=== PATIENT | female | born 1965 | race Caucasian/White ===

== ENCOUNTER 2019-02-08 19:26 | Emergency (ER) | payer OTHER ==
[2019-02-08] MEDS ORDERED: 0.9 % SODIUM CHLORIDE 1,000 ML IV ONE (19:31)
[2019-02-08] MEDS ORDERED: KETOROLAC TROMETHAMINE 30 MG/1ML VIAL IV ONE (19:31)
--- NOTE | 2019-02-08 19:38 | ED Physician Documentation ---
General Adult - HISTORIAN Historian: patient, spouse - HPI Chief Complaint: General Adult Additional Information: Patient is a 53-year-old female who presents to the ER with . Patient states they are traveling and they stayed at a friends house in . She started to get a headache around 16:00 and took some Ibuprofen and felt better- but then she developed chills and feeling dizzy. She is currently being treated for latent TB. She started antivirals on 01/25/19. She states that her xray was negative. When asked how she was exposed- she states that she works in [employer]. Onset: hours Timing: still present, worse since Severity: moderate Modifying Factors: Traveling, exposure to TB with treatment - ROS CONST: fever, recent illness (Exposure to TB), chills EYES/ENT: none CVS/RESP: shortness of breath, cough GI/: none NEURO/PSYCH: headache, dizziness - PAST HX Past History: other (fibromyalgia, hypothyroid, OCD) Surgeries/Procedures: other (uterine ablasion, heart ablasion for V-tach) Immunizations: UTD Allergies/Adverse Reactions: Allergies Allergy/AdvReac Type Severity Reaction Status Date / Time Sulfa (Sulfonamide Allergy Verified 02/08/19 19:34 Antibiotics) Home Medications: Ambulatory Orders Medication Instructions Recorded Citalopram Hydrobromide 20 mg PO DAILY 02/08/19 [Citalopram HBr] Isoniazid 900 mg PO WEEK 02/08/19 LORazepam [Ativan] 0.5 mg PO DAILY PRN 02/08/19 Levothyroxine Sodium 125 mcg PO DAILY 02/08/19 Pregabalin [Lyrica] 1 cap PO BID 02/08/19 Rifapentine [Priftin] 6 tab PO WEEK 02/08/19 Zolpidem Tartrate 5 mg PO HS 02/08/19 - SOCIAL HX Smoking History: non-smoker Alcohol Use: rarely Drug Use: none - FAMILY HX Family History: No - REVIEWED ASSESSMENTS Nursing Assessment Reviewed: Yes Vitals Reviewed: Yes Progress - Progress Progress: 20:15 spoke with patient about results of labs and xray- patient is hyperventilating- explained to slow her breathing down- we will get chest CT due to elevated D-dimer. Patient agrees with Plan of [facility]. 21:[address]- patient is resting comfortably- breathing much easier ED Results Lab/Radiology - Lab Results Lab Results: WBC 4.9, Hgb 13.9, Hct 40.2, Platelets 170 Na 137, K+ 3.8, Cl 103, CO2 21, Glucose 118, BUN 13, Cr 0.73, liver enzymes WNL D-dimer 1792 - Radiology Radiology Impressions: PA and lateral chest Clinical history: Shortness of breath. Fever. Findings: Examination of the chest in PA and lateral views with no prior films for comparison demonstrates lungs to be hypoventilated. Cardiac silhouette is prominent. Bony thorax appears intact. Spondylitic changes are seen in the thoracic vertebrae. Impression: 1. Hypoventilation. 2. Aortic atherosclerosis and left ventricular prominence. 3. No active disease. CT CHEST HISTORY: SOB, TACHYCARDIA, ELEVATED DDIMER. TECHNIQUE: Scans through the chest were obtained following intravenous contrast administration of 91 mL omnipaque. MIP reformatsof the pulmonary arteries were performed. FINDINGS: Lung parenchyma clear of infiltrates or masses. No abnormal mediastinal or axillary adenopathy seen. Cardiovascular structures have a normal appearance and no evidence of pulmonary embolism is identified. Liver, spleen, pancreas, gallbladder, adrenal glands and kidneys included on the study are within normal limits. Mild degenerative changes of the bony thorax are present without acute bony abnormality. IMPRESSION: Unremarkable chest CT. No evidence of pulmonary embolism or other significant abnormality seen. Electronically signed on Feb 08, 2019 9:11:39 PM CDT by: Donovan Bahena - Orders Orders: ED Orders Category Date Time Status Place IV Lock 1T Care 02/08/19 19:30 Ordered CHEST 2VIEW [RAD] Stat Exams 02/08/19 Ordered BLOOD CULTURE Stat Lab 02/08/19 Ordered CBC/PLATELET/DIFF Routine Lab 02/08/19 Ordered CMP Routine Lab 02/08/19 Ordered D DIMER Stat Lab 02/08/19 Ordered Ketorolac Tromethamine [Toradol] Med 02/08/19 19:31 Once 30 mg IV NOW ONE NORMAL SALINE @ 1000 MLS/HR ( 1000ml BOLUS) Med 02/08/19 19:31 Ordered 0.9 % Sodium Chloride [Normal Saline] 1,000 ml IV Q1H General Adult Physical Exam - PHYSICAL EXAM GENERAL APPEARANCE: mild distress EENT: eye inspection normal, ENT inspection normal, pharynx normal, HERMAN NECK: supple RESPIRATORY: rhonchi CVS: heart sounds normal, tachycardia ABDOMEN: soft, normal bowel sounds SKIN: warm/dry, pallor EXTREMITIES: normal range of motion NEURO: oriented X3, CN's nml as tested, motor nml, sensation nml, cognition normal Discharge Clincal Impression: Viral syndrome Referrals: Primary Doctor,No [Primary Care Provider] - 2 Days Additional Instructions: Increase water intake Try consuming more protein for healing Alternate Tylenol and Ibuprofen as needed for fever/discomfort Get plenty of rest Follow up with PCP for re-evaluation when you get home Condition: Good Disposition: 01 HOME, SELF-CARE Decision to Admit: NO Decision Time: 21:35
[2019-02-08] MEDS ORDERED: ONDANSETRON HCL/PF 4 MG/ 2ML VIAL IVP ONE (20:13)
[2019-02-08] MEDS ORDERED: ACETAMINOPHEN 1,000 MG/100 ML INJ IV ONE (20:30)
[2019-02-08 21:35] VITALS: BP 98/52
--- NOTE | 2019-02-09 05:37 | Diagnostic Imaging Report ---
REBECCA MICHAELS ED [facility] [address] [facility] [place] [facility] [address] [place], [place]. [address] Report Submission Date: Feb 08, 2019 8:13:00 PM CDT Patient Study Name: ANANYA ZAMAN Date: Feb 08, 2019 7:47:51 PM CDT Modality Type: DX Gender: F Description: CHEST 2VIEW : 69 Institution: [facility] Physician: REBECCA MCIHAELS ED PA and lateral chest Clinical history: Shortness of breath. Fever. Findings: Examination of the chest in PA and lateral views with no prior films for comparison demonstrates lungs to be hypoventilated. Cardiac silhouette is prominent. Bony thorax appears intact. Spondylitic changes are seen in the thoracic vertebrae. Impression: 1. Hypoventilation. 2. Aortic atherosclerosis and left ventricular prominence. 3. No active disease. Electronically signed on Feb 08, 2019 8:13:00 PM CDT by: Kike BARNETT
--- NOTE | 2019-02-09 05:38 | Diagnostic Imaging Report ---
REBECCA MICHAELS ED [facility] [address] [facility] [address] [place], [place]. [address] Report Submission Date: Feb 08, 2019 9:11:39 PM CDT Patient Study Name: ANANYA ZAMAN Date: Feb 08, 2019 8:41:31 PM CDT Modality Type: CT\SR Gender: F Description: CT PE CHEST : 69 Institution: [facility] Physician: REBECCA MICHAELS ED CT CHEST HISTORY: SOB, TACHYCARDIA, ELEVATED DDIMER. TECHNIQUE: Scans through the chest were obtained following intravenous contrast administration of 91 mL omnipaque. MIP reformatsof the pulmonary arteries were performed. FINDINGS: Lung parenchyma clear of infiltrates or masses. No abnormal mediastinal or axillary adenopathy seen. Cardiovascular structures have a normal appearance and no evidence of pulmonary embolism is identified. Liver, spleen, pancreas, gallbladder, adrenal glands and kidneys included on the study are within normal limits. Mild degenerative changes of the bony thorax are present without acute bony abnormality. IMPRESSION: Unremarkable chest CT. No evidence of pulmonary embolism or other significant abnormality seen. Electronically signed on Feb 08, 2019 9:11:39 PM CDT by: Donovan BARNETT
[2019-02-09 06:48] LABS: eGFR (Non-African) > 60
[2019-02-09 06:52] LABS: BASOPHILS % 0.5 % (0.0-1.5); NEUTROPHILS # 3.9 # k/uL (1.4-7.7)
== END 2019-02-08 21:33 | disposition home or self-care (01) ==
LOC: ED 19:26
DX: B34.9 Viral infection, unspecified (principal)
CPT/HCPCS: 71046; 71275; 80053; 85025; 85379; 96361; 96374; 96375; 99284; J1885; J2405; J7030; Q9967; 87040; S1016